=== PATIENT | male | born 1960 | race Caucasian/White ===

== ENCOUNTER 2020-12-02 12:29 | Emergency (ER) | payer OTHER ==
[~2020-12-02] VITALS: Ht 157.5 cm; Wt 72.1 kg
[2020-12-02] MEDS ORDERED: MOTION SICKNESS25 M1 PO (17:42)
== END 2020-12-02 17:58 | disposition home or self-care (01) ==
LOC: ER 12:29
DX: R42 Dizziness and giddiness (principal)